=== PATIENT | male | born 1940 ===

== ENCOUNTER 2017-06-04 10:08 | Outpatient (CLI) | payer OTHER ==
[~2017-06-04 10:08] MED LIST: COZAAR100 MG PO
[2017-06-13] MEDS ORDERED: ALEVE220 M1 PO (17:59)
[2017-06-13] MEDS ORDERED: CEFADROXIL500 MG PO (17:59)
[2017-06-13] MEDS ORDERED: PERCOCET 5-3251 EACH PO (17:59)
== END 2017-06-04 10:09 | disposition home or self-care (01) ==
LOC: NUCLEAR 10:08
DX: I48.0 Paroxysmal atrial fibrillation (principal); Z01.810 Encounter for preprocedural cardiovascular examination

== ENCOUNTER → 2017-06-13 | Day surgery (SDC) | payer OTHER ==
[~2017-06-13] MED LIST changes: +ALEVE220 M1 PO; +CEFADROXIL500 MG PO; +PERCOCET 5-3251 EACH PO
== END | disposition home or self-care (01) ==
LOC: CIR.AMB 06-04 07:00
DX: S52.562A Barton's fracture of left radius, initial encounter for closed fracture (principal)
CPT/HCPCS: 25609; 25101; 20902; C1776